=== PATIENT | female | born 1960 | race Caucasian/White ===

== ENCOUNTER 2024-10-06 10:52 | Emergency (ER) | payer OTHER, SELFPAY ==
[2024-10-06 11:09] VITALS: BP 128/81; PULSE 71; RESP 18; TEMP 36.7; O2SAT 99
--- NOTE | 2024-10-06 11:43 | ED_ITS ---
HPI - General Adult General Chief complaint: Extremity Injury, Upper Stated complaint: fall Time Seen by Provider: 10/06/24 11:30 Source: patient Mode of arrival: ambulatory Limitations: no limitations History of Present Illness HPI narrative: Here after a fall yesterday injuring her face and bilateral palms of hands. She reports that she tripped on a stair and fell greater than 12 hours ago. she reports some road rash on her palms along with bruising. she denies any pain or trouble with range of motion in the hands. She denies any head injury. She denies any loss of consciousness. She reports pain in her face around her nose where there are lacerations and bruising. She reports pain and swelling in the nose but is able to breathe well through both nostrils. She denies any recent bleeding from the nose today. Denies any clear fluid leaking from nose. Denies any fevers or recent illness. Denies any dizziness or headache. patient reports scratches to the face including her upper lip and chin. she applied RENITA to scratches on face and hands. patient reports going to the dentist this morning to have a crown looked at as she states she broke this during the fall. Related Data Home Medications ?Medication ?Instructions ?Recorded ?Confirmed ?Last Taken ?Type biotin 10,000 mcg disintegrating 10,000 mcg PO DAILY 05/28/19 05/28/19 Unknown History tablet bupropion HCl 300 mg 24 hr tablet, 300 mg PO QAM 05/28/19 05/28/19 Unknown History extended release (Wellbutrin XL) cholecalciferol (vitamin D3) 125 5,000 unit PO DAILY 05/28/19 05/28/19 Unknown History mcg (5,000 unit) tablet (Vitamin D3) estradiol 0.5 mg tablet 0.5 mg PO BID 05/28/19 05/28/19 Unknown History metformin 500 mg tablet 500 mg PO DAILY 05/28/19 05/28/19 Unknown History omega-3 fatty acids 1,000 mg 1,000 mg PO DAILY 05/28/19 05/28/19 Unknown History capsule progesterone micronized 200 mg 200 mg PO HS 05/28/19 05/28/19 Unknown History capsule spironolactone 50 mg tablet 50 mg PO BID 05/28/19 05/28/19 Unknown History Allergies Allergy/AdvReac Type Severity Reaction Status Date / Time Penicillins AdvReac Severe Numbness Verified 10/06/24 10:56 Review of Systems Review of Systems: CONSTITUTIONAL: Denies fever, chills, or sweats. EYES: Denies visual changes, redness, or discharge. ENT: Denies rhinorrhea, congestion, sore throat, or otalgia. Reports nose pain and pain around abrasion to the face. CARDIOVASCULAR: Denies chest pain, palpitations, or edema. RESPIRATORY: Denies cough or dyspnea. GASTROINTESTINAL: Denies abdominal pain, nausea, vomiting, or diarrhea. GENITOURINARY: Denies dysuria or hematuria. SKIN: Multiple abrasions to face including nose, upper lip, and chin. MUSCULOSKELETAL: Denies back pain, joint pain, or myalgia. Reports pain at lacerations and bruises in Palms of bilateral hands. reports has full range of motion. NEUROLOGIC: Denies headache, numbness, or weakness. PSYCHIATRIC: Denies anxiety or depression. All other systems reviewed are negative, except as documented in HPI. PMFSH Comments At time of signature, I have reviewed and agree with nursing past medical, s urgical, social and family history unless otherwise noted. Please see nursing chart for further information. There is no relevant family history pertinent to the presenting complaint. Exam Narrative: GENERAL: This is a well-nourished, well-developed patient, in no apparent distress. HEAD: normocephalic. multiple abrasions to patient's face including nose, upper lip and chin. EYES: Sclera clear/white. some bruising noted under right eye. EARS: External ears normal, auditory canals clear and without drainage. NOSE: External nose with multiple abrasions including at bridge of nose where patient reports wearing sunglasses when she fell. nose also has bruising and swelling. NECK: Trachea midline. CARDIOVASCULAR: Regular rate and rhythm without murmurs, gallops, or rubs. RESPIRATORY: Clear to auscultation. Breath sounds equal bilaterally. No wheezes, rales, or rhonchi. SKIN: warm, Dry, intact with no suspicious lesions or rash, good texture and turgor. NEURO: awake, alert, and oriented to person, place and time. There were no obvious focal neurologic abnormalities. EXTREMITIES: Bilateral palmar surfaces of hands near wrist with lacerations and bruising. patient with full range of motion of bilateral hands. patient denies pain with flexing or extending. Course Course Level of Care: Express Care Visit Vital Signs Vital signs: Vital Signs Temperature 36.7 C 10/06/24 11:09 Pulse Rate 71 10/06/24 11:09 Respiratory Rate 18 10/06/24 11:09 Blood Pressure 128/81 10/06/24 11:09 Pulse Oximetry 99 10/06/24 11:09 Oxygen Delivery Room Air 10/06/24 11:09 Temperature 36.7 C 10/06/24 11:09 Pulse Rate 71 10/06/24 11:09 Respiratory Rate 18 10/06/24 11:09 Blood Pressure 128/81 10/06/24 11:09 Pulse Oximetry 99 10/06/24 11:09 Oxygen Delivery Room Air 10/06/24 11:09 reviewed. Medical Decision Making MDM Narrative Medical decision making narrative: Patient with multiple abrasions to face and bilateral hands after a fall on concrete. Reviewed care of abrasions and precautions as they heal. reviewed importance of continuing to use a topical antibiotic ointment several times per day. The importance of keeping the abrasions clean. Reviewed proper instructions for cleaning. Reviewed signs and symptoms to monitor for and reasons to return to the emergency room. Patient is aware of diagnosis, understands and agrees to treatment plan. Anticipatory guidance was given. Discussed physical exam findings with patient and reviewed prescriptions. Discussed that facial fractures are best seen on CT scan. If she should have increased redness, drainage, or clear fluid leaking from the nose or any other concerns she will go to the emergency room where CT scan is available. Patient agrees to follow-up as directed and is aware of reasons to seek care at the emergency department. Discharge instructions were reviewed with the patient, as well as provided in writing per nursing staff. All questions have been answered, and the patient denies any further questions related to discharge or discharge plan. Vital Signs Vital Signs: Vital Signs Temperature 36.7 C 10/06/24 11:09 Pulse Rate 71 10/06/24 11:09 Respiratory Rate 18 10/06/24 11:09 Blood Pressure 128/81 10/06/24 11:09 Pulse Oximetry 99 10/06/24 11:09 Oxygen Delivery Room Air 10/06/24 11:09 Temperature 36.7 C 10/06/24 11:09 Pulse Rate 71 10/06/24 11:09 Respiratory Rate 18 10/06/24 11:09 Blood Pressure 128/81 10/06/24 11:09 Pulse Oximetry 99 10/06/24 11:09 Oxygen Delivery Room Air 10/06/24 11:09 reviewed Discharge Plan Discharge Clinical Impression: Abrasion of face and extremities Qualifiers: Encounter type: initial encounter Laterality: right Qualified Code(s): S00.81XA - Abrasion of other part of head, initial encounter Contusion of nose Qualifiers: Encounter type: initial encounter Qualified Code(s): S00.33XA - Contusion of nose, initial encounter Patient Disposition: Home Condition: Stable Instructions: Abrasion (ED), Nasal Contusion (ED), Facial Contusion (ED) Additional Instructions: Take medications as needed and follow printed instructions. Apply topical antibiotic ointment and or Vaseline to lacerations (scrapes) 4 times a day. Keep lacerations clean. May take over the counter acetaminophen and/or ibuprofen by mouth as needed/directed for pain/fever.? Call your Primary Care Doctor today to make a follow-up appointment. Go to the ER for any worsening symptoms or concerns. Patient Language: [place] Prescriptions: No Action metformin 500 mg Tablet 500 mg PO DAILY progesterone micronized 200 mg Capsule 200 mg PO HS estradiol 0.5 mg Tablet 0.5 mg PO BID bupropion HCl [Wellbutrin XL] 300 mg Tablet Extended Release 24 Hr 300 mg PO QAM spironolactone 50 mg Tablet 50 mg PO BID cholecalciferol (vitamin D3) [Vitamin D3] 125 mcg (5,000 unit) Tablet 5,000 unit PO DAILY biotin 10,000 mcg Tablet,Disintegrating 10,000 mcg PO DAILY omega-3 fatty acids 1,000 mg Capsule 1,000 mg PO DAILY Follow-up/Referrals: PHYSICIAN,CLINICAL RESEARCH SCIENTIST [Primary Care Provider] - Time of Disposition: 11:49
== END 2024-10-06 11:52 | disposition home or self-care (01) ==
PROVIDERS: Emergency Provider Nurse Practitioner; Referring Provider Emergency Medicine
DX: S00.31XA Abrasion of nose, initial encounter (principal); S00.511A Abrasion of lip, initial encounter; S00.81XA Abrasion of other part of head, initial encounter; S60.511A Abrasion of right hand, initial encounter; S60.512A Abrasion of left hand, initial encounter; S00.33XA Contusion of nose, initial encounter; W10.9XXA Fall (on) (from) unspecified stairs and steps, initial encounter; R73.03 Prediabetes; F41.9 Anxiety disorder, unspecified; F32.A Depression, unspecified; Z86.16 Personal history of COVID-19
CPT/HCPCS: 99211; G0463